=== PATIENT | male | born 1975 | race Caucasian/White ===

== ENCOUNTER 2023-12-02 17:43 | Inpatient (IN) | payer SELFPAY ==
[2023-12-02 17:44] VITALS: BP 120/78; PULSE 85; RESP 17; TEMP 37.1; O2SAT 94; BMI 26.4
--- NOTE | 2023-12-02 17:47 | ED.C_ITS ---
HPI - Psych 2 General: Chief Complaint: Psychiatric Symptoms Stated Complaint: 96 Time Seen by Provider: 12/02/23 17:45 History of Present Illness: 48-year-old man who presents to the [facility] room with police with a court ordered 96-hour hold. A friend had signed an affidavit saying that he had said he was going to kill himself and that he appeared manic. He had burned a goat pen and was tearing up his garden and saying he was not going to assisted. Apparently had a break-up with a girlfriend recently. He says to me only had 1 beer today. Review of Systems 2 Narrative: Constitutional symptoms: Negative except as documented in HPI. Skin symptoms: Negative except as documented in HPI. Eye symptoms: Negative except as documented in HPI. ENMT symptoms: Negative except as documented in HPI. Respiratory symptoms: Negative except as documented in HPI. Cardiovascular symptoms: Negative except as documented in HPI. Gastrointestinal symptoms: Negative except as documented in HPI. Genitourinary symptoms: Negative except as documented in HPI. Musculoskeletal symptoms: Negative except as documented in HPI. Neurologic symptoms: Negative except as documented in HPI. Psychiatric symptoms: Negative except as documented in HPI. Endocrine symptoms: Negative except as documented in HPI. PFSH ED 2 PFSH: Social History Smoking and tobacco/nicotine status: current every day tobacco/nicotine user Second hand smoke exposure: No Alcohol intake: former Substance/Drug Use: former Adopted: No Caregiver/support person: No Lives independently: Yes Household members: none Housing: House Marital status: Single Number of children: 0 Highest education level completed: 11th Grade service: No Current occupational status: disabled Physical Exam 2 Narrative: EXAM NARRATIVE: General: Alert, no acute distress. Skin: Warm, dry. Head: Normocephalic, atraumatic. Neck: Supple, trachea midline. Eye: Extraocular movements are intact. Ears, nose, mouth and throat: mucosa moist. Cardiovascular: Regular, Normal peripheral perfusion. Respiratory: Lungs are clear to auscultation, respirations are non-labored, breath sounds are equal, Symmetrical chest wall expansion. Gastrointestinal: Soft, Nontender, Non distended Musculoskeletal: Normal ROM, no deformity. Neurological: Alert and oriented, No focal neurological deficit observed. Psychiatric: Patient is currently a bit combative about being here. He currently denies suicidal ideation. Course 2 Vital Signs: Vital signs: Vital Signs Temperature 98.7 F 12/02/23 17:44 Pulse Rate 85 12/02/23 17:44 Respiratory Rate 17 12/02/23 17:44 Blood Pressure 120/78 12/02/23 17:44 Pulse Oximetry 94 12/02/23 17:44 MDM - Psych Medical Decision Making Differential diagnosis: Patient with reported depression and suicidal ideation. concerns for infection, alcohol intoxication, cardiac issues or other medical problems prior to psychiatric admission. Workup: labwork, ekg ordered to evaluate the pathologies and to clear the patient medically prior to psychiatric admission EKG: Time 1756. Rate 84. Normal sinus rhythm, No ST-T changes, no ectopy, normal NH & QRS intervals, This was reviewed and interpreted by myself the ER physician at 1800 Lab Review: Laboratory results were reviewed and interpreted by myself the emergency room physician. Lab review: - Medically cleared. - EKG shows no ischemic changes. - Blood alcohol level is negative, as well as salicylate and Tylenol. - Drug screen is negative - No signs of infection, urinalysis clear and white count is not elevated - No anemia. - BUN and creatinine are within normal limits. Consultation: I spoke with Dr. Larios who agrees to admit the patient. Assessment and plan: Suicidal ideation -Admission to neuropsychiatric unit for continued evaluation and treatment. - All lab work was reviewed and interpreted personally by myself, the ER physician - Evaluation and treatment of this problem were appropriate in the emergency setting Lab Data 12/02/23 18:09 12/02/23 18:09 Laboratory Results WBC 6.07 10^3/uL (3.29-11.43) 12/02/23 18:09 RBC 5.26 10^6/uL (3.85-5.65) 12/02/23 18:09 Hgb 16.20 g/dL (11.27-16.99) 12/02/23 18:09 Hct 46.9 % (37-53) 12/02/23 18:09 MCV 89.2 fl (82-101) 12/02/23 18:09 MCH 30.8 pg (27-33) 12/02/23 18:09 MCHC 34.5 g/dL (30-55) 12/02/23 18:09 RDW 12.3 % (12.1-15.1) 12/02/23 18:09 Plt Count 147 10^3/cmm (157-399) L 12/02/23 18:09 MPV 11.4 fL (7.4-10.4) H 12/02/23 18:09 Neut % (Auto) 67.6 % 12/02/23 18:09 Lymph % (Auto) 20.9 % 12/02/23 18:09 [place] % (Auto) 7.7 % 12/02/23 18:09 Eos % (Auto) 1.8 % 12/02/23 18:09 Baso % (Auto) 1.3 % 12/02/23 18:09 Neut # (Auto) 4.10 10^3/uL (1.8-7.7) 12/02/23 18:09 Lymph # (Auto) 1.3 10^3/uL (0.8-4.8) 12/02/23 18:09 [place] # (Auto) 0.5 10^3/uL (0.2-0.9) 12/02/23 18:09 Eos # (Auto) 0.1 10^3/uL (0.0-0.8) 12/02/23 18:09 Baso # (Auto) 0.1 10^3/uL (0.0-0.1) 12/02/23 18:09 Nucleated RBC % (auto) 0 % 12/02/23 18:09 Nucleated RBCs # 0.0 /100WBC 12/02/23 18:09 Sodium 140 mmol/L (136-145) 12/02/23 18:09 Potassium 4.4 mmol/L (3.5-5.1) 12/02/23 18:09 Chloride 105 mmol/L (98-107) 12/02/23 18:09 Carbon Dioxide 23 mmol/L (22-29) 12/02/23 18:09 Anion Gap 16.4 (5-19) 12/02/23 18:09 BUN 16 mg/dL (6-20) 12/02/23 18:09 Creatinine 0.9 mg/dL (0.7-1.2) 12/02/23 18:09 GFR Calculation 90.4 mL/min (90-130) 12/02/23 18:09 Glucose 88 mg/dL (65-115) 12/02/23 18:09 Calculated Osmolality 291 mOsm/kg (285-295) 12/02/23 18:09 Calcium 9.1 mg/dL (8.5-10.5) 12/02/23 18:09 Total Bilirubin 0.2 mg/dL (0.15-1.2) 12/02/23 18:09 AST 18 U/L (0-40) 12/02/23 18:09 ALT 21 U/L (0-41) 12/02/23 18:09 Alkaline Phosphatase 54 U/L (40-130) 12/02/23 18:09 Total Protein 7.3 g/dL (6.6-8.7) 12/02/23 18:09 Albumin 4.7 g/dL (3.5-5.2) 12/02/23 18:09 Globulin 2.6 g/dL (1.3-4.6) 12/02/23 18:09 TSH 1.40 uIU/mL (0.27-4.20) 12/02/23 18:09 Salicylates < 0.3 mg/dL (3-10) L 12/02/23 18:09 Acetaminophen < 5.0 ug/mL (10-30) L 12/02/23 18:09 Ethyl Alcohol 18 mg/dL (0-10) H 12/02/23 18:09 No radiology studies performed this visit Discharge Plan Discharge Patient Disposition: Admitted As Inpatient Clinical Impression: Suicidal ideation Condition: Stable Coding Level of Care Code ED Plunger Scoop Operator for Ingrid Finnegan
--- NOTE | 2023-12-02 17:56 | ECG_ITS ---
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 Measurements Intervals [place] Rate: 84 P: 52 NV: 144 QRS: 76 QRSD: 93 T: 62 QT: 346 QTc: 411 Interpretive Statements SINUS RHYTHM No previous ECG available for comparison Electronically Signed On 12-02-2023 20:44:33 CDT by Randi Anna M.D. [email or web address]
[2023-12-02 18:16] LABS: Basophils # 0.1 10^3/uL (0.0-0.1); Basophils % 1.3 %; Eosinophils # 0.1 10^3/uL (0.0-0.8); Eosinophils % 1.8 %; Hematocrit 46.9 % (37-53); Lymphocytes # 1.3 10^3/uL (0.8-4.8); Lymphocytes % 20.9 %; Mean Corpuscular HGB Conc 34.5 g/dL (30-55); Mean Corpuscular Hemoglobin 30.8 pg (27-33); Mean Corpuscular Volume 89.2 fl (82-101); Mean Platelet Volume 11.4 fL (7.4-10.4); Monocytes # 0.5 10^3/uL (0.2-0.9); Monocytes % 7.7 %; Neutrophils % 67.6 %; Nucleated Red Blood Cells % 0 %; Platelet Count 147 10^3/cmm (157-399); Red Blood Count 5.26 10^6/uL (3.85-5.65); Red Cell Distribution Width 12.3 % (12.1-15.1); White Blood Count 6.07 10^3/uL (3.29-11.43)
[2023-12-02] MEDS: HYDROcodone-acetaminophen 5-325 mg Tablet 1 TAB PO (18:17)
[2023-12-02 18:44] LABS: Alanine Aminotransferase 21 U/L (0-41); Albumin Level 4.7 g/dL (3.5-5.2); Alcohol Level 18 mg/dL (0-10); Alkaline Phosphatase 54 U/L (40-130); Anion Gap 16.4 (5-19); Aspartate Amino Transferase 18 U/L (0-40); Blood Urea Nitrogen 16 mg/dL (6-20); Calcium 9.1 mg/dL (8.5-10.5); Carbon Dioxide 23 mmol/L (22-29); Chloride 105 mmol/L (98-107); Creatinine Clr Calc Pharmacy 114.3171; Globulin 2.6 g/dL (1.3-4.6); Glomerular Filtration Rate 90.4 mL/min (90-130); Glucose 88 mg/dL (65-115); Osmolality Calculated 291 mOsm/kg (285-295); Potassium 4.4 mmol/L (3.5-5.1); Sodium 140 mmol/L (136-145); Total Bilirubin 0.2 mg/dL (0.15-1.2); Total Protein 7.3 g/dL (6.6-8.7)
[2023-12-02 18:48] LABS: Salicylate < 0.3 mg/dL (3-10)
[2023-12-02 18:49] LABS: Acetaminophen < 5.0 ug/mL (10-30)
--- NOTE | 2023-12-02 20:00 | PC.NURSE ---
96 Hour Involuntary Hold Patient Rights have been read to patient and a copy of the same has been given to him. Supervisor Plate Pasting Linda Guzman was present at bedside at the time of presentation of Rights. Patient verbally acknowledges understanding of Rights.
[2023-12-02 20:16] LABS: Bacteria Urine TRACE /hpf; Bilirubin Urine Neg (Negative); Blood Urine Neg (Negative); Glucose Urine UA Norm (Normal); Ketones Urine Negative (Negative); Leukocyte Esterase Urine Negative (Negative); Nitrate Urine Negative (Negative); Protein Urine Neg (Negative); RBC Urine 0-4 /hpf (0-2); Squamous Epithelial Cell Urine 0-4 /hpf (0-5); Urine Appearance Clear (CLEAR); Urine Color Yellow (Yellow); Urobilinogen Urine Neg (Negative); WBC Urine 0-4 /hpf (0-5); pH Urine 6.5 (5-7)
[2023-12-02 20:28] LABS: Amphetamines Screen Urine Negative (Negative); Barbiturates Screen Urine Negative (Negative); Benzodiazepines Screen Urine Negative (Negative); Cocaine Screen Urine Negative (Negative); Opiate Screen Urine Positive (Negative); PCP Screen Urine Negative (Negative); THC Screen Urine Negative (Negative)
[2023-12-02 21:56] VITALS: BP 120/78; PULSE 85; RESP 17; TEMP 37.1; O2SAT 94
[2023-12-02 22:00] VITALS: BP 132/79; PULSE 82; RESP 18; TEMP 36.6; O2SAT 98
[2023-12-02] MEDS: nicotine 4 mg lozenge MUCOUS MEM (22:18)
[2023-12-03 06:00] VITALS: BP 118/81; PULSE 72; RESP 16; TEMP 36.6; O2SAT 99
[2023-12-03] MEDS: nicotine 4 mg lozenge MUCOUS MEM ×6 (08:16→19:44)
[2023-12-03] MEDS: ibuprofen 600 mg Tablet PO (08:23)
[2023-12-03 14:00] VITALS: BP 137/96; PULSE 81; RESP 16; TEMP 36.8; O2SAT 98
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
[2023-12-03] MEDS: carBAMazepine 200 mg Tablet PO (17:52)
[2023-12-03 20:39] VITALS: BP 127/71; PULSE 85; RESP 18; TEMP 36.5; O2SAT 98
[2023-12-04 06:00] VITALS: BP 116/75; PULSE 60; RESP 16; O2SAT 97
[2023-12-04] MEDS: carBAMazepine 200 mg Tablet PO ×2 (08:24→17:36)
[2023-12-04] MEDS: ibuprofen 600 mg Tablet PO (08:24)
[2023-12-04] MEDS: nicotine 4 mg lozenge MUCOUS MEM ×6 (08:25→20:23)
--- NOTE | 2023-12-04 12:15 | P.NPUPN_ITS ---
Subjective NPU 2 Subjective: 48-year-old male admitted with suicidal ideation and history of poor impulse control. The patient had continued to endorse a long history of symptoms suggestive of ADHD. He had reported that he had had a history of a loss of consciousness with mood swings and poor impulse control. He reported having struggles with execution of tasks. He reports being unable to follow directions and reports being easily frustrated. He had complained of significant back pain and continue to report some nerve pain. He had reported adequate sleep last night. He had reported having struggles with increased anxiety and worry particularly about being potentially incarcerated. There was no acts of aggression noted on the unit. He had remained calm on the unit with no threatening behavior noted. Mental Status Exam 2 MSE Comments: Casually dressed tall white male who appeared his stated age. He had fair eye contact and normal hygiene. There was no evidence of any abnormal involuntary motor movements tics or tremors appreciated. He was fidgety and hypermotoric with struggles sitting still. His mood was described as frustrated. His affect was labile with periods of inappropriate giggling appreciated. His thought process was linear and mostly logical with some circumstantiality appreciated. His thought content showed no evidence of homicidal ideation although he had acknowledged suicidal ideation leading to his admission. There was some general paranoia and distrust appreciated. He did not appear to be responding to internal stimuli. There was no overt delusions noted. His recent remote memory were grossly intact. His insight appeared poor. His judgment was poor. His impulse control appeared limited. He was oriented to person, place, time and situation. Vitals/I&O/Wt Last Vital Signs Temp 97.7 F 12/03/23 20:39 Pulse 60 12/04/23 06:00 Resp 16 12/04/23 06:00 BP 116/75 12/04/23 06:00 Pulse Ox 97 12/04/23 06:00 O2 Del Method Room Air 12/04/23 06:00 Weight last 48 hrs Weight 90.537 kg Weight 86.183 kg Data NPU 12/02/23 18:09 12/02/23 18:09 A&P Assessment and plan (1) Impulse control disorder, unspecified: (2) Unspecified mood [affective] disorder: (3) Suicidal ideation: (4) ADHD (attention deficit hyperactivity disorder), combined type: Plan 48-year-old male currently showing some evidence of paranoia and odd presentation in regards to affect admitted involuntarily due to suicidal ideation. The patient is refusing any antimanic agents at this time. #1.? Engage patient in individual milieu and group therapy.? #2? Encourage sober living treatment after discharge at the highest level of care to which he is willing to commit. #3?? CIWA for alcohol withdrawal #4?? TO-15 minute checks? #5?? Will attempt to gather collateral information, continue with 96 hour hold at this time. #6 Started Tegretol 200mg bid to target potential TBI, poor impulse control, Involuntary Hold Information 2 96 Hour Hold: 96 Hour Involuntary Admission: Yes 96 Hour Hold Ending Date: 12/07/23 96 Hour Hold Ending Time: 19:45 Attestations NPU 2 Medical Necessity Statement*: Inpatient hospitalization is medically necessary and deemed to ?be ?the clinically appropriate intervention ?at this time.? We will monitor/initiate medications and make changes as indicated.? ? The patient?s likely length of stay 3-5 days. Coding Level of Care Code Acute Code for Chg Fwd Diagnoses Impulse control disorder, unspecified F63.9 Unspecified mood [affective] disorder F39 Suicidal ideation R45.851 ADHD (attention deficit hyperactivity disorder), combined type F90.2
[2023-12-04 14:00] VITALS: BP 103/65; PULSE 71; RESP 16; TEMP 36.8; O2SAT 97
[2023-12-04 19:42] VITALS: BP 122/81; PULSE 69; RESP 17; O2SAT 99
[2023-12-05 06:00] VITALS: BP 105/71; PULSE 70; RESP 17; TEMP 36.4; O2SAT 98
[2023-12-05] MEDS: nicotine 4 mg lozenge MUCOUS MEM ×6 (06:40→20:28)
[2023-12-05] MEDS: carBAMazepine 200 mg Tablet PO ×2 (08:49→17:25)
[2023-12-05] MEDS: ibuprofen 600 mg Tablet PO (08:50)
--- NOTE | 2023-12-05 09:00 | PC.NURSE ---
PT CURRENTLY DENIES SI/HI/AH/VH. PT CURRENTLY DENIES DEPRESSION AND ANXIETY. PT WAS COOPERATIVE WITH ASSESSMENT AND MEDICATIONS. PT APPEARS CALM IN AFFECT. PT CURRENT NEEDS ARE MET AT THIS TIME.
[2023-12-05 14:00] VITALS: BP 110/73; PULSE 81; RESP 17; TEMP 36.6; O2SAT 95
--- NOTE | 2023-12-05 16:41 | P.NPUPN_ITS ---
Subjective NPU 2 Subjective: 48-year-old male admitted with suicidal ideation and history of poor impulse control. Patient had reported that he was feeling better. He had reported that his back pain had improved with less nerve pain reported. He reported that he had seen less angry. He had reported no problems with his thoughts and stated that he was not having any thoughts of hurting himself or anyone else at this time. The patient had reported having periods of time where he had been more impulsive and continued to support history of symptoms suggestive of traumatic brain injury. He had reported some improved sleep. Mental Status Exam 2 MSE Comments: Casually dressed tall white male who appeared his stated age. He had fair eye contact and normal hygiene. He remained fidgety and hypermotoric with struggles sitting still. His mood was described as frustrated. His affect was less intense with brief periods of giggling appreciated. His thought process was linear and mostly logical. His thought content showed no evidence of homicidal ideation although he had acknowledged suicidal ideation leading to his admission. There was less paranoia and distrust appreciated. He did not appear to be responding to internal stimuli. There was no overt delusions noted. His recent remote memory were grossly intact. His insight appeared poor. His judgment was poor. His impulse control appeared limited. He was oriented to person, place, time and situation. Vitals/I&O/Wt Last Vital Signs Temp 97.8 F 12/05/23 14:00 Pulse 81 12/05/23 14:00 Resp 17 12/05/23 14:00 BP 110/73 12/05/23 14:00 Pulse Ox 95 12/05/23 14:00 O2 Del Method Room Air 12/05/23 06:00 Weight last 48 hrs Weight 90.537 kg Data NPU 12/02/23 18:09 12/02/23 18:09 A&P Assessment and plan (1) Impulse control disorder, unspecified: (2) Unspecified mood [affective] disorder: (3) Suicidal ideation: (4) ADHD (attention deficit hyperactivity disorder), combined type: Plan 48-year-old male currently showing some evidence of paranoia and odd presentation in regards to affect admitted involuntarily due to suicidal ideation. The patient is refusing any antimanic agents at this time. #1.? Engage patient in individual milieu and group therapy.? #2? Encourage sober living treatment after discharge at the highest level of care to which he is willing to commit. #3?? CIWA for alcohol withdrawal #4?? TO-15 minute checks? #5?? Will attempt to gather collateral information, continue with 96 hour hold at this time. #6 Continue Tegretol 200mg bid to target potential TBI, poor impulse control, appears improved. Involuntary Hold Information 2 96 Hour Hold: 96 Hour Involuntary Admission: Yes 96 Hour Hold Ending Date: 12/07/23 96 Hour Hold Ending Time: 19:45 Attestations NPU 2 Medical Necessity Statement*: Inpatient hospitalization is medically necessary and deemed to ?be ?the clinically appropriate intervention ?at this time.? We will monitor/initiate medications and make changes as indicated.? ? The patient?s likely length of stay 2-3 days. Coding Level of Care Code Acute Code for Chg Fwd Diagnoses Impulse control disorder, unspecified F63.9 Unspecified mood [affective] disorder F39 Suicidal ideation R45.851 ADHD (attention deficit hyperactivity disorder), combined type F90.2
[2023-12-05 21:52] VITALS: BP 103/62; PULSE 88; RESP 16; TEMP 36.6; O2SAT 97
[2023-12-06 06:00] VITALS: BP 144/92; PULSE 74; RESP 14; O2SAT 95
[2023-12-06] MEDS: nicotine 4 mg lozenge MUCOUS MEM ×3 (08:25→14:24)
[2023-12-06] MEDS: carBAMazepine 200 mg Tablet PO (08:25)
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
[2023-12-06 14:00] VITALS: BP 106/66; PULSE 99; RESP 16; TEMP 36.4; O2SAT 93
[2023-12-06 14:16] VITALS: BP 144/92; PULSE 74; RESP 14; O2SAT 95
== END 2023-12-06 15:17 | disposition home or self-care (01) | DRG 886 ==
LOC: ER 20:00 → NP 20:03
PROVIDERS: Admitting Provider Psychiatry & Neurology Psychiatry; Emergency Provider Emergency Medicine; Visit Provider Psychiatry & Neurology Psychiatry
DX: F63.9 Impulse disorder, unspecified (principal); R45.851 Suicidal ideations; F39 Unspecified mood [affective] disorder; G89.29 Other chronic pain; M54.9 Dorsalgia, unspecified; F17.210 Nicotine dependence, cigarettes, uncomplicated; F90.2 Attention-deficit hyperactivity disorder, combined type
CPT/HCPCS: 36415; 80053; 80306; 80307; 81001; 84443; 85025; 93005; 97150; 97165; 99285